=== PATIENT | female | born 1945 | race Caucasian/White ===

== ENCOUNTER 2019-03-12 09:46 | Day surgery (SDC) | payer OTHER, BC ==
--- NOTE | 2019-02-17 12:03 | HP ---
DATE OF DICTATION: 02/13/2019 DATE OF SURGERY: 03/12/2019 BRIEF HISTORY: This is a 73-year-old female who has history of nonspecific right upper quadrant discomfort and pain. She has undergone a CAT scan for this issue , and on the CAT scan, she is noted to have cholelithiasis without evidence of acute cholecystitis. There is no obvious ductal dilatation. Patient has no history of changes in stool color, urine color. She has had no fever, chills, or sweats. PAST MEDICAL HISTORY: No coronary disease, hypertension, or diabetes. PAST SURGICAL HISTORY: Patient has had open appendectomy as a child. ALLERGIES: None. MEDICATIONS: Vitamins. SOCIAL HISTORY: She does not smoke nor drink. No history of drug use. PHYSICAL EXAMINATION: HEENT: There is no icterus. Abdomen: Soft, nontender, nondistended. She has a poorly-healed right lower quadrant scar from an appendectomy. BACK: She has no CVA tenderness. IMPRESSION/PLAN: Symptomatic cholelithiasis, questionable history of biliary colic versus cholecystitis. This is a 73-year-old female symptomatic from her biliary disease. At this point, we have discussed the pros and cons of a cholecystectomy, and the patient has opted to proceed with a laparoscopic cholecystectomy, possible open. The indications, alternatives, and complications of the procedure discussed. Questions answered. We will plan to obtain written consent the day of surgery. CALI MCCRACKEN M.D. [id number] cc: Tigre Paige MD MTDD
[2019-03-03 17:27] VITALS: BMI 24.3
[~2019-03-12 09:46] MED LIST: morphine CARPU-JECT 4 MG/1 ML DISP.SYRIN IVPB PRN; oxyCODONE HCL 5 MG TABLET PO PRN
[2019-03-12] MEDS ORDERED: LIDOCAINE HCL/PF 2% SDV 5ML VIAL ONE (09:55)
[2019-03-12] MEDS ORDERED: PROPOFOL 20 ML ONE (09:55)
[2019-03-12] MEDS ORDERED: ROCURONIUM BROMIDE 50 MG/5 ML VIAL ONE (09:56)
[2019-03-12] MEDS ORDERED: MIDAZOLAM HCL 2 MG/2 ML SINGLE DOSE VIAL ONE (09:56)
[2019-03-12] MEDS ORDERED: D5-1/2NS+20 MEQ KCL - 20 MEQ/1,000 ML INFUS.BAG IV SCH (10:00)
[2019-03-12] MEDS ORDERED: PANTOPRAZOLE SODIUM 40 MG VIAL IVPUSH SCH (10:00)
[2019-03-12] MEDS ORDERED: morphine SULFATE 4 MG/ML VIAL IVPB PRN (10:07)
[2019-03-12] MEDS ORDERED: AMPICILLIN NA/SULBACTAM NA 1.5 GM VIAL ONE (10:18)
[2019-03-12] MEDS ORDERED: NEOSTIGMINE METHYLSULFATE 0.5 MG/ML - 10 ML MDV ONE (10:44)
[2019-03-12] MEDS ORDERED: GLYCOPYRROLATE 0.2 MG/1 ML VIAL ONE (10:45)
[2019-03-12] MEDS ORDERED: ONDANSETRON 4 MG/2 ML VIAL ONE (10:49)
[2019-03-12] MEDS ORDERED: DEXAMETHASONE SOD PHOSPHATE 4 MG/1 ML VIAL ONE (10:50)
[2019-03-12] MEDS ORDERED: ONDANSETRON 4 MG/2 ML VIAL IVPUSH PRN (11:24)
[2019-03-12] MEDS ORDERED: LACTATED RINGERS SOLUTION 1,000 ML IV SCH (11:30)
[2019-03-12] MEDS ORDERED: ACETAMINOPHEN INJECTION 100 ML IVPB ONE (12:04)
[2019-03-12] MEDS: ACETAMINOPHEN 1000 MG/100 ML VIAL (NON FORMULARY) IVPB ONE ×2 (12:08→13:19)
[2019-03-12] MEDS ORDERED: PANTOPRAZOLE SODIUM 40 MG VIAL ONE (12:23)
[2019-03-12] MEDS ORDERED: PANTOPRAZOLE SODIUM 40 MG VIAL IVPB ONE (12:26)
[2019-03-12] MEDS: LOSARTAN POTASSIUM 50 MG TABLET (FP) PO SCH (13:19)
--- NOTE | 2019-03-12 15:04 | OP ---
DATE OF OPERATION: 03/12/2019 PREOPERATIVE DIAGNOSIS: Symptomatic cholelithiasis. POSTOPERATIVE DIAGNOSIS: Symptomatic cholelithiasis. PROCEDURE: Laparoscopic cholecystectomy, peritoneal lavage. SURGEON: Keshawn Hansen MD REFRIGERATING ENGINEER: Robert Mohr DO ANESTHESIA: Jesse Lu MD (general) ESTIMATED BLOOD LOSS: Minimal. SPECIMEN: Gallbladder. INDICATIONS FOR PROCEDURE: This is a 73-year-old female symptomatic from her biliary disease. She is here today for a cholecystectomy. Patient was identified and appropriately positioned on the operating room table. After placement of general anesthesia, the abdomen was prepped and draped in the usual sterile fashion with ChloraPrep. An infraumbilical incision was made deepened to the subcutaneous tissues. The fascia was divided sharply. Under direct vision, a Veress needle followed by a structural needle placed. Also under direct vision the remaining ports were placed. The gallbladder identified in the right upper quadrant. It was reflected over the dome of the liver in standard fashion. Going from lateral to medial, the neck and infundibulum of the gallbladder identified, followed by the cystic duct. The cystic duct circumferentially isolated, clipped and then divided. The artery identified more medially and posteriorly and subsequently isolated, clipped and then divided in a similar fashion. The gallbladder itself was removed from the liver bed with electrocautery. Prior to complete removal, the liver bed was irrigated. The operative field noted to be hemostatic. The specimen was brought out through the umbilical port site. The lower quadrant irrigated with saline, the irrigant retrieved and noted to be clear. The ports removed. Port sites hemostatic. The fascia at the umbilical port site reapproximated with interrupted 0 Vicryl suture. All skin closed with 4-0 subcuticular Biosyn, followed by Dermabond. At the conclusion of this case, sponge and needle count was correct. ATTESTATION: Brief operative note handwritten on the preprinted form. [facility] queried prior to giving any narcotics. Oscar SOSA [id number] cc: Oscar Haynes
[2019-03-12] MEDS: ACETAMINOPHEN 325 MG TABLET (FP) PO PRN ×2 (15:51→22:38)
[2019-03-13 06:35] VITALS: BP 105/42; PULSE 55; TEMP 98.5
[2019-03-13] MEDS: LOSARTAN POTASSIUM 50 MG TABLET (FP) PO SCH (09:35)
[2019-03-13] MEDS ORDERED: ENOXAPARIN NA (PORCINE) 40 MG/0.4 ML DISP.SYRIN SQ SCH (10:00)
[2019-03-13] MEDS ORDERED: ENOXAPARIN NA (PORCINE) 40 MG/0.4 ML DISP.SYRIN SQ ONE (10:00)
--- NOTE | 2019-03-14 16:05 | PATH ---
Surgical Pathology Report Patient Name: [facility] LAST Med. Rec. #: [id number] /Age/Gender: 1945 (Age: 73) / F Account: [id number] Location: [facility] Taken: 03/12/2019 Received: 03/12/2019 Reported: 03/14/2019 Physicians: Keshawn Hansen Specimen(s) Received GALLBLADDER Clinical History Cholelithiasis Final Diagnosis GALLBLADDER, CHOLECYSTECTOMY: CHRONIC CHOLECYSTITIS AND CHOLELITHIASIS. Electronically Signed Suze Harp M.D. Gross Description Received in formalin, labeled "gallbladder," is a 6.8 x 3.7 x 3.0 cm. gallbladder with a 0.2 cm. in length portion of cystic duct attached. The outer surface is patel green and varies from smooth to shaggy. The lumen contains green, tenacious bile as well as multiple black, irregular choleliths ranging from 0.3-0.5 cm in greatest dimension. The mucosa is dark green and velvety. The wall of the gallbladder measures 0.1 cm. in thickness. Damper Maker sections are submitted in one cassette. /03/13/2019 saudi03/13/2019
== END 2019-03-13 13:40 | disposition home or self-care (01) ==
LOC: FASUSAT 09:46 → FM/S 09:46 → FASUSAT 03-13 13:40
PROVIDERS: ATTEND Surgery
PROC: 0FT44ZZ Resection of Gallbladder, Percutaneous Endoscopic Approach (ICD-10-PCS; principal; 2019-03-12 10:22)
DX: K80.20 Calculus of gallbladder without cholecystitis without obstruction (principal)
CPT/HCPCS: 88304-TC; J0131